=== PATIENT | female | born 1930 | race Caucasian/White ===

== ENCOUNTER 2018-10-09 08:28 | Inpatient (IN) ==
[2018-10-09] MEDS ORDERED: ROBITUSSIN-DM PO PRN (13:37)
[2018-10-09] MEDS ORDERED: ROXANOL CONC. LIQUID PO PRN (13:38)
[2018-10-09] MEDS ORDERED: IMODIUM PO PRN (13:39)
[2018-10-09] MEDS ORDERED: HALDOL PO PRN (13:40)
[2018-10-09] MEDS ORDERED: NORCO-7.5 PO PRN (13:40)
[2018-10-09] MEDS ORDERED: COMPAZINE PO PRN (13:41)
[2018-10-09] MEDS: SEROQUEL PO SCH ×2 (15:36→19:52)
[2018-10-09] MEDS: FERROUS SULFATE PO SCH (19:53)
[2018-10-10] MEDS: FERROUS SULFATE PO SCH ×3 (01:52→23:13)
[2018-10-10] MEDS: SEROQUEL PO SCH ×3 (01:52→23:14)
--- NOTE | 2018-10-10 04:49 | HISTORY AND PHYSICAL ---
HISTORY OF PRESENT ILLNESS: She is an 88-year-old white female who has been in the hospice for a diagnosis of dementia with chronic atrial fibrillation and type 2 diabetes. Admitted to the hospital respite care for 5 days. REVIEW OF SYSTEMS: The patient is confused and no complaints. PAST MEDICAL HISTORY: Chronic atrial fibrillation, hypothyroidism, hypertension, diabetes, hyperlipidemia, COPD. PAST SURGICAL HISTORY: Benign breast lumpectomy, hysterectomy. ALLERGIES: Theophylline. SOCIAL HISTORY: Lives in [place]. No smoking. No drug abuse. FAMILY HISTORY: Noncontributory. REVIEW OF SYSTEMS: Pleasantly confused. MEDICATIONS: Are as listed on the chart as follows: Atenolol 25 daily, Vitamin D3 1 capsule daily, iron sulfate 325 p.o. b.i.d., furosemide 20 mg daily, guaifenesin/dextromethorphan 5 mg as needed, Haldol as needed, Imodium as needed. Singulair 10 daily, Roxanol 20 mg every 1-2 hours p.r.n. pain., potassium 10 mEq daily, Compazine 5 mg as needed, Seroquel 50 daily, Warfarin 2.5 every other day, Allopurinol 100 p.o. b.i.d., Pepcid 20 daily, [place] as needed, board drugs but paste as directed Synthroid 25 mcg daily, Seroquel 25 daily. PHYSICAL EXAMINATION: VITAL SIGNS: Temperature is 95 degrees. Vitals are stable. Blood pressure is slightly high. Weight is 150 pounds, 5 feet 5 inches. HEENT: Seborrheic lesions noted. No anemia. No cyanosis. Tongue is in midline. NECK: Supple. JVD is slightly elevated. CHEST: Bilateral air entry. HEART: Irregular heart sounds. A 2 x 6 systolic murmur. ABDOMEN: Belly is soft, nontender. No masses palpable. EXTREMITIES: No peripheral edema or cyanosis. NEUROLOGICAL: No obvious neurological deficits. ASSESSMENT AND PLAN: 1. An 88-year-old white female admitted to the hospital respite care for 5 days. Plan is to reconcile home medicines. 2. Living will. [id number]. 3. On warfarin for chronic atrial fibrillation. We will check prothrombin time/international normalized ratio before she leaves and continue respite care for 5 days since 10/09/2018. cc: Alireza Mohr MD
[2018-10-10] MEDS: SYNTHROID PO SCH (05:59)
[2018-10-10] MEDS: LASIX PO SCH (08:50)
[2018-10-10] MEDS: KLOR-CON PO SCH (08:50)
[2018-10-10] MEDS: PEPCID PO SCH (08:51)
[2018-10-10] MEDS: TENORMIN PO SCH (08:51)
[2018-10-10] MEDS: ZYLOPRIM PO SCH (08:51)
[2018-10-10] MEDS: SINGULAIR PO SCH (08:51)
[2018-10-10] MEDS: VITAMIN D PO SCH (08:51)
[2018-10-10] MEDS: COUMADIN PO SCH (23:13)
--- NOTE | 2018-10-11 01:08 | PROGRESS NOTE ---
DATE: 10/10/2018 SUBJECTIVE: An 88-year-old white female admitted to the hospital respite care with a diagnosis of end-stage dementia. The patient is anxious to go home. No complaints. PHYSICAL EXAMINATION: Vital Signs: Temperature is 97. Vitals are stable. General: Physical exam no change. Heart: Irregular heart rate. ASSESSMENT AND PLAN: Respite care for 5 days. Check the PT/INR before discharge. Continue present medical regimen. Living will, DNR. LEVEL OF DOCUMENTATION: 15 minutes. cc: Alireza Mohr MD
[2018-10-11] MEDS: COUMADIN PO SCH (04:32)
[2018-10-11] MEDS: SEROQUEL PO SCH ×3 (04:32→20:00)
[2018-10-11] MEDS: FERROUS SULFATE PO SCH ×3 (04:32→20:00)
[2018-10-11] MEDS: SYNTHROID PO SCH (06:00)
[2018-10-11] MEDS: ZYLOPRIM PO SCH (08:43)
[2018-10-11] MEDS: VITAMIN D PO SCH (08:43)
[2018-10-11] MEDS: SINGULAIR PO SCH (08:43)
[2018-10-11] MEDS: PEPCID PO SCH (08:44)
[2018-10-11] MEDS: LASIX PO SCH (08:44)
[2018-10-11] MEDS: TENORMIN PO SCH (08:44)
[2018-10-11] MEDS: KLOR-CON PO SCH (08:44)
--- NOTE | 2018-10-11 23:24 | PROGRESS NOTE ---
DATE: 10/11/2018 SUBJECTIVE: The patient is doing very well. No complaints. Pleasantly confused. REVIEW OF SYSTEMS: None reported. PHYSICAL EXAMINATION: Vital signs: 97.6, pulse is 72, blood pressure 156/96, 96% on room air. HEENT: Within normal limits. Heart: Irregular heart sounds. Abdomen: Belly is soft, nontender. Neurologic: No neurological deficits. ASSESSMENT AND PLAN: End-stage dementia, stable. Respite care for 5 days. Living will, DNR. Continue present medical treatment. Recheck PT/INR tomorrow prior to the discharge. LEVEL OF DOCUMENTATION: 15 minutes. cc: Alireza Mohr MD
[2018-10-12] MEDS: SYNTHROID PO SCH ×2 (05:56→06:07)
[2018-10-12] MEDS: FERROUS SULFATE PO SCH ×3 (10:18→22:33)
[2018-10-12] MEDS: PEPCID PO SCH (10:18)
[2018-10-12] MEDS: VITAMIN D PO SCH (10:18)
[2018-10-12] MEDS: TENORMIN PO SCH (10:19)
[2018-10-12] MEDS: LASIX PO SCH (10:19)
[2018-10-12] MEDS: SINGULAIR PO SCH (10:19)
[2018-10-12] MEDS: ZYLOPRIM PO SCH (10:19)
[2018-10-12] MEDS: KLOR-CON PO SCH (10:19)
--- NOTE | 2018-10-12 12:17 | PROGRESS NOTE ---
DATE: 10/12/2018 SUBJECTIVE: The patient has no complaints. She says she is not hurting anywhere. She is alert, a little bit confused. OBJECTIVE: Vital Signs: Blood pressure 173/96, respirations 18, pulse 66, oxygen saturation is 99% on room air. Blood pressure has been up and down a little bit. ASSESSMENT: 1. Dementia on respite care. 2. Hypertension. PLAN: Continue to monitor. cc: MD Alireza Perez Jr, MD
[2018-10-12] MEDS: SEROQUEL PO SCH ×2 (17:15→22:33)
[2018-10-12] MEDS: COUMADIN PO SCH ×2 (19:54→22:33)
[2018-10-13] MEDS: SYNTHROID PO SCH (06:03)
[2018-10-13] MEDS: SINGULAIR PO SCH (10:39)
[2018-10-13] MEDS: ZYLOPRIM PO SCH (10:39)
[2018-10-13] MEDS: VITAMIN D PO SCH (10:39)
[2018-10-13] MEDS: TENORMIN PO SCH (10:39)
[2018-10-13] MEDS: FERROUS SULFATE PO SCH ×3 (10:39→22:06)
[2018-10-13] MEDS: PEPCID PO SCH (10:39)
[2018-10-13] MEDS: LASIX PO SCH (10:39)
[2018-10-13] MEDS: KLOR-CON PO SCH (10:40)
--- NOTE | 2018-10-13 12:04 | PROGRESS NOTE ---
DATE: 10/13/2018 SUBJECTIVE: The patient says she feels fine. She looks forward to going home. She has no new complaints. OBJECTIVE: Vital Signs: Stable with a blood pressure 149/78, respirations 18, pulse 64, temperature 97.7 degrees Fahrenheit. Oxygen saturation on room air is 95%. HEENT: She is normocephalic. EOMS intact. PERRLA. Throat clear. Lungs: Clear to auscultation and percussion without rhonchi, rales, or wheezes. Heart: Regular rate and rhythm without murmurs, gallops, friction rubs. Abdomen: Soft. Active bowel sounds. No organomegaly or tenderness. Neurological: Intact grossly except for dementia, and she is a little confused, but she seems to be happy at this time. ASSESSMENT: 1. Dementia. Here for respite care. 2. Hypertension. PLAN: Continue care. cc: MD Alireza Perez Jr, MD
[2018-10-13] MEDS: SEROQUEL PO SCH ×3 (15:30→22:06)
[2018-10-14] MEDS: SYNTHROID PO SCH ×2 (05:53→06:21)
[2018-10-14 07:12] VITALS: BP 185/79
[2018-10-14] MEDS: LASIX PO SCH (09:00)
[2018-10-14] MEDS: FERROUS SULFATE PO SCH (09:00)
[2018-10-14] MEDS: PEPCID PO SCH (09:00)
[2018-10-14] MEDS: KLOR-CON PO SCH (09:00)
[2018-10-14] MEDS: SINGULAIR PO SCH (09:00)
[2018-10-14] MEDS: TENORMIN PO SCH (09:01)
[2018-10-14] MEDS: ZYLOPRIM PO SCH (09:01)
[2018-10-14] MEDS: VITAMIN D PO SCH (09:01)
--- NOTE | 2018-10-15 08:40 | DISCHARGE SUMMARY ---
ADMISSION DATE: 10/09/2018 DISCHARGE DATE: 10/14/2018 DISCHARGING DIAGNOSIS: Respite care for underlying dementia. SECONDARY DIAGNOSES: 1. Chronic atrial fibrillation. 2. Type 2 diabetes. 3. Hypothyroidism. 4. Hypertension. BRIEF HISTORY: Please see the H and P that was done on 10/09/2018. In brief, she is an 88-year- old white female, who was admitted to the hospital respite care for 5 days. During this hospital course, the patient did not have any untoward complications. Patient has been discharged back to outpatient palliative services. DISCHARGE INSTRUCTIONS: Atenolol 25 mg daily, vitamin D3 5000 units daily, iron sulfate 325 p.o. b.i.d., Singulair 10 daily, Roxanol 20 mg/mL every 1 hour as needed, potassium 10 mEq daily, Seroquel 50 at bedtime, warfarin 2.5 mg every other day, allopurinol 100 mg p.o. b.i.d., Pepcid 20 daily, Synthroid 25 mcg daily. symptomatic treatment for pain, cough, and diarrhea as per the standing orders. Check the PT/INR next week. Continue to see her progress through the IDG meetings. cc: Alireza Mohr MD
== END 2018-10-14 11:38 | disposition hospice, home (50) | DRG 884 ==
LOC: DIRADM 08:28 → 3N 12:10
PROVIDERS: ADMIT Internal Medicine; ATTEND Internal Medicine
CPT/HCPCS: A9270

== ENCOUNTER 2018-12-13 11:22 | Inpatient (IN) ==
[2018-12-13] MEDS ORDERED: SEROQUEL PO SCH (16:45)
[2018-12-13] MEDS ORDERED: ROBITUSSIN-DM PO PRN (16:49)
[2018-12-13] MEDS ORDERED: ROXANOL CONC. LIQUID PO PRN (16:51)
[2018-12-13] MEDS ORDERED: IMODIUM PO PRN (16:52)
[2018-12-13] MEDS ORDERED: HALDOL PO PRN (16:53)
[2018-12-13] MEDS ORDERED: NORCO-7.5 PO PRN (16:53)
[2018-12-13] MEDS ORDERED: COMPAZINE PO PRN ×2 (16:54→17:15)
[2018-12-13] MEDS: COUMADIN PO SCH (20:20)
[2018-12-13] MEDS: FERROUS SULFATE PO SCH (20:20)
[2018-12-13] MEDS: SEROQUEL PO SCH ×2 (20:20)
--- NOTE | 2018-12-13 22:01 | HISTORY AND PHYSICAL ---
CHIEF COMPLAINT: Respite care for 5 days. HISTORY OF PRESENT ILLNESS: She is 88-year-old pleasant confused white female came in hospice with a diagnosis of dementia, chronic atrial fibrillation, diabetes. She was admitted respite care for 5 days. REVIEW OF SYSTEMS: None reported. Pleasantly confused. PAST MEDICAL HISTORY: Chronic atrial fibrillation, hypothyroid, hypertension, diabetes, hyperlipidemia, COPD. PAST SURGICAL HISTORY: Benign breast lumpectomy, hysterectomy. ALLERGIES: Theophylline. SOCIAL HISTORY: Lives in [place]. No smoking, no drug, no alcohol abuse. FAMILY HISTORY: Noncontributory. MEDICATIONS: 1. Atenolol 25 daily. 2. Vitamin D3 5000 units daily. 3. Iron sulfate 325 p.o. b.i.d. 4. Lasix 20 daily. 5. Robitussin cough medicine as needed . 6. Haloperidol 0.5 q.4 as needed. 7. Imodium 2 mg q.4 as needed. 8. Singulair 10 daily. 9. Roxanol 20 mg/mL q.1 to 2 hours as needed. 10. Potassium 10 mEq daily. 11. Seroquel 50 mg daily. 12. Warfarin 2.5 mg every other day. 13. Allopurinol 100 p.o. b.i.d. 14. Pepcid 20 daily. 15. [place] 7.5 as needed. 16. Synthroid 25 mcg daily. 17. Seroquel 25 at bedtime. EXAMINATION: Temperature is 98 degrees, blood pressure is 162/78, 142 pounds.HEENT: Atraumatic, normocephalic. Pupils equal, react to light. Neck: Supple. No lymphadenopathy. Chest: Clear, distant heart sounds and she has a seborrheic keratosis on the upper chest. Belly: Is soft, nontender. No peripheral edema. No obvious deficits noted. ASSESSMENT AND PLAN: 1. 88-year-old white female admitted to the hospice with respite care. Plan is the care of skin, bladder, bowels. 2. Will check the PT/INR before discharge . 3. Reconcile home medications. 4. Living will, DNR and she will stay for next 5 days. cc: Alireza Mohr MD
[2018-12-14] MEDS: SYNTHROID PO SCH (06:11)
[2018-12-14] MEDS: TENORMIN PO SCH (09:11)
[2018-12-14] MEDS: SINGULAIR PO SCH (11:46)
[2018-12-14] MEDS: VITAMIN D PO SCH (11:46)
[2018-12-14] MEDS: FERROUS SULFATE PO SCH ×2 (11:47→22:39)
[2018-12-14] MEDS: LASIX PO SCH (11:47)
[2018-12-14] MEDS: PEPCID PO SCH (11:47)
[2018-12-14] MEDS: KLOR-CON PO SCH (11:47)
[2018-12-14] MEDS: ZYLOPRIM PO SCH (11:47)
--- NOTE | 2018-12-14 19:40 | PROGRESS NOTE ---
DATE: 12/14/2018 SUBJECT: The patient is here for respite care for 5 days and no complaints. EXAMINATION: Temperature is 97 degrees, pulse is 69, blood pressure 149/71, 94% on room air.HEENT: Within normal limits. Neck: Supple. Heart: Irregular heart sounds. Rest of the exam is benign. ASSESSMENT AND PLAN: 1. Respite care for 5 days. 2. Atrial fibrillation on Coumadin. Will check the PT/INR before she leaves. Continue present treatment. Living will, DNR. LEVEL OF DOCUMENTATION: 15 minutes. cc: Alireza Mohr MD
[2018-12-14] MEDS: SEROQUEL PO SCH ×2 (22:39)
[2018-12-15] MEDS: SYNTHROID PO SCH (06:18)
[2018-12-15] MEDS: VITAMIN D PO SCH (09:30)
[2018-12-15] MEDS: SINGULAIR PO SCH (09:30)
[2018-12-15] MEDS: ZYLOPRIM PO SCH (09:30)
[2018-12-15] MEDS: PEPCID PO SCH (09:30)
[2018-12-15] MEDS: KLOR-CON PO SCH (09:30)
[2018-12-15] MEDS: TENORMIN PO SCH (09:30)
[2018-12-15] MEDS: LASIX PO SCH (09:30)
[2018-12-15] MEDS: FERROUS SULFATE PO SCH ×2 (09:30→22:13)
--- NOTE | 2018-12-15 12:43 | PROGRESS NOTE ---
DATE: 12/15/2018 SUBJECTIVE: The patient is an respite care for dementia. REVIEW OF SYSTEMS: None reported. No complaints. OBJECTIVE: Vital signs: On exam, temperature is 97.4 degrees, pulse is 70, blood pressure 113/80. HEENT: Within normal limits. Neck: Supple. Chest: Clear. Heart: Distant heart sounds. Abdomen: Belly is soft, nontender. Neurologic: Nonfocal. ASSESSMENT AND PLAN: 1. An 88-year-old white female with end-stage dementia, in respite care for 5 days. 2. Care of the skin, bladder, and bowels. 3. Living will/Do Not Resuscitate. Continue supportive care. 4. Check the PT/INR before discharge. LEVEL OF DOCUMENTATION: 15 minutes. cc: Alireza Mohr MD
[2018-12-15] MEDS: COUMADIN PO SCH (22:13)
[2018-12-15] MEDS: SEROQUEL PO SCH ×2 (22:13)
[2018-12-16] MEDS: SYNTHROID PO SCH (06:26)
[2018-12-16] MEDS: ZYLOPRIM PO SCH (08:02)
[2018-12-16] MEDS: VITAMIN D PO SCH (08:02)
[2018-12-16] MEDS: FERROUS SULFATE PO SCH ×2 (08:03→22:07)
[2018-12-16] MEDS: PEPCID PO SCH (08:03)
[2018-12-16] MEDS: KLOR-CON PO SCH (08:03)
[2018-12-16] MEDS: LASIX PO SCH (08:03)
[2018-12-16] MEDS: TENORMIN PO SCH (08:03)
[2018-12-16] MEDS: SINGULAIR PO SCH (08:03)
--- NOTE | 2018-12-16 20:50 | PROGRESS NOTE ---
DATE: 12/16/2018 SUBJECTIVE: The patient is doing very well. No complaints. Respite care continued. REVIEW OF SYSTEMS: None reported. OBJECTIVE: Vital signs: Temperature is 97 degrees, pulse is 73, blood pressure is 150/68. On physical exam, no change. ASSESSMENT AND PLAN: Continue respite care for 5 days. Check the PT/INR before discharge. LEVEL OF DOCUMENTATION: 15 minutes. cc: Alireza Mohr MD
[2018-12-16] MEDS: SEROQUEL PO SCH ×2 (22:05)
[2018-12-17] MEDS: ZYLOPRIM PO SCH (08:04)
[2018-12-17] MEDS: PEPCID PO SCH (08:04)
[2018-12-17] MEDS: LASIX PO SCH (08:04)
[2018-12-17] MEDS: SYNTHROID PO SCH (08:04)
[2018-12-17] MEDS: VITAMIN D PO SCH (08:04)
[2018-12-17] MEDS: SINGULAIR PO SCH (08:04)
[2018-12-17] MEDS: TENORMIN PO SCH (08:04)
[2018-12-17] MEDS: KLOR-CON PO SCH (08:04)
[2018-12-17] MEDS: FERROUS SULFATE PO SCH ×2 (08:04→21:56)
[2018-12-17] MEDS: SEROQUEL PO SCH ×2 (21:56)
[2018-12-17] MEDS: COUMADIN PO SCH (21:56)
--- NOTE | 2018-12-17 22:10 | PROGRESS NOTE ---
DATE: 12/17/2018 SUBJECTIVE: The patient is out of bed. Doing very well. No complaints. PHYSICAL EXAMINATION: On exam, vital signs are stable. Temperature is 97 degrees, pulse is 66, blood pressure is stable. Physical exam no change. ASSESSMENT AND PLAN: 1. End-stage dementia. Respite care for 5 days. Hopefully, she will go home tomorrow. Check the PT/INR before discharge. 2. Living will, Do Not Resuscitate. Continue present treatment. LEVEL OF DOCUMENTATION: 15 minutes. cc: Alireza Mohr MD
[2018-12-18] MEDS: SYNTHROID PO SCH (06:28)
[2018-12-18 07:25] VITALS: BP 135/71
[2018-12-18] MEDS: FERROUS SULFATE PO SCH (09:55)
[2018-12-18] MEDS: PEPCID PO SCH (09:55)
[2018-12-18] MEDS: ZYLOPRIM PO SCH (09:55)
[2018-12-18] MEDS: SINGULAIR PO SCH (09:55)
[2018-12-18] MEDS: KLOR-CON PO SCH (09:56)
[2018-12-18] MEDS: VITAMIN D PO SCH (09:56)
[2018-12-18] MEDS: TENORMIN PO SCH (09:56)
[2018-12-18] MEDS: LASIX PO SCH (09:56)
--- NOTE | 2018-12-18 23:59 | DISCHARGE SUMMARY ---
ADMISSION DATE: 12/13/2018 DISCHARGE DATE: 12/18/2018 DISCHARGE DIAGNOSES: 1. Respite care for 5 days with a diagnosis of dementia. 2. Other diagnoses: Chronic atrial fibrillation. 3. Type 2 diabetes. 4. Hypothyroidism. 5. Hypertension. BRIEF HISTORY: Please see the H and P that was done on 12/13/2018. In brief, she is an 88-year- old pleasantly confused white female, admitted to the hospital for respite care for 5 days. There were no complications. The patient was discharged back to the outpatient palliative services. DISCHARGE INSTRUCTIONS: Continue to monitor her progress through the IDG meeting with the following instructions: 1. Atenolol 25 daily. 2. Vitamin D3, 5000 units daily. 3. Iron sulfate 325 p.o. b.i.d. 4. Singulair 10 mg daily. 5. Roxanol 20 mg/mL every 1 hour as needed. 6. Potassium 10 mEq daily. 7. Seroquel 50 at bedtime. 8. Warfarin 2.5 mg every other day, monitoring PT/INR as an outpatient. 9. Allopurinol 100 p.o. b.i.d. 10. Pepcid 20 mg daily. 11. Synthroid 25 mg daily. 12. Continue to see her progress through the IDG meetings. cc: Alireza Mohr MD
== END 2018-12-18 13:27 | disposition hospice, home (50) | DRG 884 ==
LOC: DIRADM 11:22 → 3N 15:57
PROVIDERS: ADMIT Internal Medicine; ATTEND Internal Medicine
CPT/HCPCS: A9270

== ENCOUNTER 2019-03-29 12:39 | Inpatient (IN) ==
[2019-03-29] MEDS ORDERED: HALDOL PO PRN (15:53)
[2019-03-29] MEDS ORDERED: COMPAZINE PO PRN (15:53)
[2019-03-29] MEDS ORDERED: IMODIUM PO PRN (15:54)
[2019-03-29] MEDS ORDERED: NORCO-7.5 PO PRN (15:54)
[2019-03-29] MEDS ORDERED: ROXANOL CONC. LIQUID PO PRN (15:55)
[2019-03-29] MEDS ORDERED: ROBITUSSIN-DM PO PRN (15:57)
[2019-03-29 16:56] LABS: INR 1.27; PROTIME 16.9 Seconds (11.0-16.0)
[2019-03-29] MEDS: FERROUS SULFATE PO SCH (17:10)
[2019-03-29] MEDS: SEROQUEL PO SCH (21:00)
[2019-03-30 06:07] LABS: URINE SOURCE CLEAN CATCH
[2019-03-30 06:18] LABS: BILIRUBIN URINE NEGATIVE (NEGATIVE); BLOOD URINE NEGATIVE (NEGATIVE); COLOR YELLOW; GLUCOSE URINE NEGATIVE (NEGATIVE); KETONE URINE NEGATIVE (NEGATIVE); LEUKOCYTES URINE SMALL (NEGATIVE); NITRITE URINE NEGATIVE (NEGATIVE); PROTEIN URINE TRACE mg/dL (NEGATIVE); SP GRAVITY URINE 1.014; TURBIDITY URINE CLEAR (CLEAR); UROBILINOGEN URINE NORMAL (NORMAL)
[2019-03-30 06:19] LABS: UR EPITHELIAL CELLS <10 /HPF (<10); URINE BACTERIA NEGATIVE /HPF; URINE RBC <10 /HPF (<10); URINE WBC <10 /HPF (<10)
[2019-03-30] MEDS: SYNTHROID PO SCH (06:25)
[2019-03-30] MEDS: FERROUS SULFATE PO SCH ×2 (08:45→16:14)
[2019-03-30] MEDS: SINGULAIR PO SCH (08:45)
[2019-03-30] MEDS: KLOR-CON PO SCH (08:45)
[2019-03-30] MEDS: LASIX PO SCH (08:45)
[2019-03-30] MEDS: PEPCID PO SCH (08:46)
[2019-03-30] MEDS: VITAMIN D PO SCH (08:46)
[2019-03-30] MEDS: TENORMIN PO SCH (08:46)
[2019-03-30] MEDS: SEROQUEL PO SCH ×2 (14:04→21:04)
[2019-03-30] MEDS: COUMADIN PO SCH (21:03)
--- NOTE | 2019-03-31 04:33 | PROGRESS NOTE ---
DATE: 03/30/2019 Ms. Soler has severe dementia. She is admitted on a respite basis. She does not have any urinary tract infection as noted on urinalysis. Her vital signs are stable. -2 cc: MD Alireza Montalvo MD
[2019-03-31] MEDS: SYNTHROID PO SCH (06:33)
[2019-03-31] MEDS: VITAMIN D PO SCH (09:04)
[2019-03-31] MEDS: FERROUS SULFATE PO SCH ×2 (09:04→16:55)
[2019-03-31] MEDS: SINGULAIR PO SCH (09:04)
[2019-03-31] MEDS: PEPCID PO SCH (09:05)
[2019-03-31] MEDS: LASIX PO SCH (09:05)
[2019-03-31] MEDS: TENORMIN PO SCH (09:05)
[2019-03-31] MEDS: KLOR-CON PO SCH (09:05)
[2019-03-31] MEDS: SEROQUEL PO SCH ×2 (16:55→21:24)
--- NOTE | 2019-03-31 21:03 | PROGRESS NOTE ---
DATE: 03/31/2019 SUBJECTIVE: Admitted to Respite Care on 03/29. REVIEW OF SYSTEMS: None reported. EXAMINATION: Vital Signs: Temp is 97.8, pulse 69, blood pressure 147/70. HEENT: Within normal limits. Neck: Supple. Chest: Bilateral air entry. Heart: Sounds are regular. Abdomen: Belly is soft, nontender. No obvious deficits. ASSESSMENT AND PLAN: Respite Care for dementia. Continue present treatment. Blood sugars running well. INR is 1.2. Urinalysis is clear. Will continue to monitor her progress. LEVEL OF DOCUMENTATION: 15 minutes. cc: Alireza Mohr MD
--- NOTE | 2019-03-31 21:07 | HISTORY AND PHYSICAL ---
CHIEF COMPLAINT: Respite care for 5 days. HISTORY OF PRESENT ILLNESS: She is an 88-year-old, pleasantly confused white female who came into hospice with a diagnosis of dementia, chronic atrial fibrillation, diabetes, admitted for respite for 5 days. REVIEW OF SYSTEMS: None reported; pleasantly confused. PAST MEDICAL HISTORY: 1. Chronic atrial fibrillation. 2. Hypothyroid. 3. Hypertension. 4. Diabetes. 5. Hyperlipidemia. 6. COPD. PAST SURGICAL HISTORY: 1. Benign breast lumpectomy. 2. Hysterectomy. ALLERGIES: Theophylline. SOCIAL HISTORY: Lives in [place]. No smoking. No drugs. No alcohol abuse. FAMILY HISTORY: Noncontributory. MEDICINES: 1. Atenolol 25 daily. 2. Vitamin D3 5000 units daily. 3. Iron sulfate 325 p.o. b.i.d. 4. Lasix 20 daily. 5. Robitussin cough medicine as needed. 6. Haloperidol 0.5 q.4 hours as needed. 7. Imodium 2 mg q.4 hours as needed. 8. Singulair 10 mg daily. 9. Roxanol 20 mg/mL every 1 to 2 hours as needed. 10. Potassium 10 mEq daily. 11. Seroquel 50 mg daily. 12. Warfarin 2.5 mg every other day. 13. Allopurinol 100 p.o. b.i.d. 14. Pepcid 20 daily. 15. [place] 7.5 as needed. 16. Synthroid 25 mcg daily. 17. Seroquel 25 at bedtime. PHYSICAL EXAMINATION: Temperature is 98.2 degrees, pulse 60, blood pressure 175/58. HEENT: Atraumatic, normocephalic. Pupils equal, react to light. TMs are normal. Nose and throat within normal limits. CHEST: Clear. HEART: Sounds are regular. ABDOMEN: Belly is soft, nontender. Good bowel sounds. EXTREMITIES: No peripheral edema, cyanosis. NEUROLOGIC: No obvious deficits. ASSESSMENT AND PLAN: 82-year-old white female admitted to the hospital to hospice with respite care, starting from 03/29/2019 for 5 days. Plan of care is care of the skin, bladder, and bowels, reconcile home medicines, Living Will, Do Not Resuscitate, continue present care. cc: Alireza Mohr MD
[2019-04-01] MEDS: SYNTHROID PO SCH (06:18)
[2019-04-01] MEDS: VITAMIN D PO SCH (08:48)
[2019-04-01] MEDS: KLOR-CON PO SCH (08:48)
[2019-04-01] MEDS: FERROUS SULFATE PO SCH ×2 (08:48→17:48)
[2019-04-01] MEDS: SINGULAIR PO SCH (08:48)
[2019-04-01] MEDS: PEPCID PO SCH (08:48)
[2019-04-01] MEDS: LASIX PO SCH (08:49)
[2019-04-01] MEDS: TENORMIN PO SCH (08:49)
[2019-04-01] MEDS: SEROQUEL PO SCH ×2 (15:45→21:11)
--- NOTE | 2019-04-01 21:06 | PROGRESS NOTE ---
DATE: 04/01/2019 PHYSICAL EXAMINATION: Vital signs: On examination temp is 98 degrees, pulse 62, blood pressure is 180/90, 94% on room air. HEENT exam: Within normal limits. Neck: Is supple. Chest: Is clear. Heart: Sounds are regular. Abdomen: Belly is soft, nontender. Neurologic: No neurological deficits. LABORATORY DATA: Urine cultures: Mixed tanner. ASSESSMENT AND PLAN: An 88-year-old white female basically Respite Care for 5 days, currently stable. No evidence of urinary tract infection. Continue to observe and continue Respite Care. LEVEL OF DOCUMENTATION: 15 minutes. cc: Alireza Mohr MD
[2019-04-01] MEDS: COUMADIN PO SCH (21:11)
[2019-04-02] MEDS: SYNTHROID PO SCH (06:33)
[2019-04-02] MEDS: KLOR-CON PO SCH (08:21)
[2019-04-02] MEDS: FERROUS SULFATE PO SCH ×2 (08:21→16:25)
[2019-04-02] MEDS: TENORMIN PO SCH (08:21)
[2019-04-02] MEDS: VITAMIN D PO SCH (08:21)
[2019-04-02] MEDS: PEPCID PO SCH (08:21)
[2019-04-02] MEDS: SINGULAIR PO SCH (08:21)
[2019-04-02] MEDS: LASIX PO SCH (08:21)
[2019-04-02] MEDS: SEROQUEL PO SCH ×2 (16:26→20:53)
--- NOTE | 2019-04-02 20:02 | PROGRESS NOTE ---
DATE: 04/02/2019 SUBJECTIVE: The patient complains of lower abdominal discomfort. No other complaints. PHYSICAL EXAMINATION: Vital Signs: Temperature is 97.9 degrees, pulse 65, blood pressure stable. HEENT: Within normal limits. Neck: Supple. No lymphadenopathy. Chest: Bilateral air entry. Heart: Sounds are regular. Abdomen: Belly is soft, nontender. No obvious deficits. ASSESSMENT AND PLAN: End-stage dementia on respite care. Follow up on urine cultures, mixed tanner. The patient has been reassured. Continue present care. LEVEL OF DOCUMENTATION: 15 minutes. cc: Alireza Mohr MD
[2019-04-03] MEDS: SYNTHROID PO SCH (06:11)
[2019-04-03 07:45] VITALS: BP 150/74
[2019-04-03] MEDS: LASIX PO SCH (08:02)
[2019-04-03] MEDS: VITAMIN D PO SCH (08:02)
[2019-04-03] MEDS: PEPCID PO SCH (08:02)
[2019-04-03] MEDS: FERROUS SULFATE PO SCH (08:02)
[2019-04-03] MEDS: KLOR-CON PO SCH (08:02)
[2019-04-03] MEDS: SINGULAIR PO SCH (08:02)
[2019-04-03] MEDS: TENORMIN PO SCH (08:03)
== END 2019-04-03 11:00 | disposition hospice, home (50) | DRG 57 ==
LOC: EDBD → DIRADM 12:39 → 3N 15:38
PROVIDERS: ADMIT Internal Medicine; ATTEND Internal Medicine
CPT/HCPCS: 81001; 82948; 85610; 87088; A9270; XXXXX